=== PATIENT | female | born 1985 | race Caucasian/White ===

== ENCOUNTER 2017-06-12 12:47 | Emergency (ER) | payer OTHER ==
[2017-06-12 12:56] VITALS: BP 116/73
--- NOTE | 2017-06-12 14:58 | ED Physician Documentation ---
PD HPI LOWER EXT INJURY - Stated complaint Stated Complaint: RT LEG PX - Chief complaint Chief Complaint: Ext Problem - History obtained from History obtained from: Patient - History of Present Illness PD HPI LOW EXT INJURY LOCATION: Right, Calf Type of injury: Other (had been on drive from [place] to here prior to the onset.). No: Fall, Twist, Blunt / blow Timing - onset: How many weeks ago (1) Timing - duration: Weeks (1) Timing - details: Gradual onset, Still present, Waxing and waning Worsened by: Moving, Palpating Associated symptoms: No: Weakness, Numbness, Swelling Similar symptoms before: Has not had sx before Recently seen: Not recently seen Review of Systems Constitutional: denies: Fever, Chills Musculoskeletal: reports: Extremity pain. denies: Extremity swelling Neurologic: denies: Generalized weakness, Focal weakness, Numbness PD PAST MEDICAL HISTORY - Past Medical History Past Medical History: Yes Cardiovascular: None Respiratory: None Neuro: None Endocrine/Autoimmune: None Psych: Depression, Anxiety - Past Surgical History Past Surgical History: Yes - Present Medications Home Medications: Ambulatory Orders Medication Instructions Recorded Confirmed Norelgestromin/Ethin.estradiol 1 each TD DAILY 06/12/17 06/12/17 [Xulane Patch] buPROPion [Wellbutrin Xl] 150 mg PO DAILY 06/12/17 06/12/17 - Allergies Allergies/Adverse Reactions: Allergies Allergy/AdvReac Type Severity Reaction Status Date / Time No Known Drug Allergies Allergy Verified 06/12/17 12:56 - Social History Does the pt smoke?: No Smoking Status: Former smoker Does the pt drink ETOH?: No ETOH Use: Beer Does the pt have substance abuse?: No - Immunizations Immunizations are current?: Yes - POLST Patient has POLST: No PD ED PE NORMAL - Vitals Vital signs reviewed: Yes - General General: Alert and oriented X 3, No acute distress, Well developed/nourished - Cardiac Cardiac: RRR, No murmur - Respiratory Respiratory: No respiratory distress, Clear bilaterally - Derm Derm: Normal color, Warm and dry, No rash - Extremities Extremities: No tenderness to palpate, Normal ROM s pain, No edema, Other ( right calf with tenderness focally in medial posterior calf, without mass, redness, rash. Hurts for plantarflexion against resistance. ) - Neuro Neuro: Alert and oriented X 3, No motor deficit, No sensory deficit Results - Vitals Vitals: Oxygen O2 Source Room air - Rads (name of study) duplex Radiology: Prelim report reviewed (no DVT) PD MEDICAL DECISION MAKING - ED course Complexity details: reviewed results (no DVT, presume then just muscle strain), considered differential, d/w patient Departure - Departure Disposition: 01 Home, Self Care Clinical Impression: Right calf pain, Muscle strain Clinical Impression: (Ruled Out): Deep vein thrombosis Condition: Stable Record reviewed to determine appropriate education?: Yes Instructions: ED Strain Muscle Ext Follow-Up: AHMET Shoemaker [Provider Group] Comments: No signs of blood clots. Presume muscle strain at this point. Ibuprofen or naproxen 2-3 times a day for the next several days. Activity as able based on comfort. This presumably will improve slowly over the next several days to a week. Recheck if worsening symptoms or swelling in the foot or ankle, skin rash , fevers, other concerns. Discharge Date/Time: 06/12/17 17:37
--- NOTE | 2017-06-12 17:34 | Ultrasound Preliminary Report ---
Exam: US DUPLEX EXT VEINS RIGHT IMPRESSION: No evidence for deep venous thrombosis. [facility] SITE ID: [id number]
--- NOTE | 2017-06-12 17:37 | Ultrasound Report ---
EXAM: RIGHT LOWER EXTREMITY VENOUS ULTRASOUND EXAM DATE: 06/12/2017 04:08 PM. CLINICAL HISTORY: Pain in right calf without injury. Recent travel. COMPARISON: None. TECHNIQUE: Real-time sonographic vascular imaging was performed by the in store representative through the lower extremity utilizing both color-flow and Doppler spectral analysis. Multiple national sales representative static maxine ges were saved for review. FINDINGS: Common Femoral Vein (CFV): Normal. CFV-GSV Junction: Normal. Profunda Femoral Vein (PFV): Normal. Femoral Vein (FV) Prox: Normal. Femoral Vein (FV) Mid: Normal. Femoral Vein (FV) Dist: Normal. Popliteal Vein: Normal. Posterior Tibial Veins: Normal. Peroneal Veins: Normal. Other: None. IMPRESSION: No evidence for deep venous thrombosis. [facility] Referring Provider Line: [phone] SITE ID: [id number]
== END 2017-06-12 17:37 | disposition home or self-care (01) ==
LOC: ED 12:47
DX: M79.661 Pain in right lower leg (principal); S86.811A Strain of other muscle(s) and tendon(s) at lower leg level, right leg, initial encounter; X58.XXXA Exposure to other specified factors, initial encounter; Z87.891 Personal history of nicotine dependence
CPT/HCPCS: 99282; 99283

== ENCOUNTER 2019-01-28 16:26 | Outpatient (CLI) | payer OTHER ==
--- NOTE | 2019-01-30 12:11 | MRI Report ---
Reason: PAIN IN RIGHT WRIST Procedure Date: 01/28/2019 Accession Number: [id number] / [id number] Procedure: MRI - Wrist RT W/O CPT Code: FULL RESULT: EXAM: RIGHT WRIST MRI WITHOUT CONTRAST EXAM DATE: 01/28/2019 05:20 PM. CLINICAL HISTORY: Right wrist pain. COMPARISON: None. TECHNIQUE: Multiplanar, multisequence T1-weighted and fluid-sensitive sequences of the wrist without contrast. Other: None. FINDINGS: Bones: No fractures or subluxations. No marrow edema. No bone lesions. Cartilage: The articular cartilage is unremarkable. There is a small 1 mm tear at the radial aspect of the triangular fibrocartilage articular disk. Ligaments: The scapholunate and lunotriquetral ligaments are intact. The visualized other intrinsic, extrinsic and collateral ligaments are unremarkable. Tendons: The extensor compartment I through and flexor tendons are unremarkable. Musculature: No edema or fatty atrophy. Other: The contents of the carpal tunnel, including the median nerve, are unremarkable. Guyons canal is unremarkable. There is a small 3 x 3 x 2 mm synovial cyst arising from the volar aspect of the radiocarpal joint. Small distal radial ulnar joint effusion. The subcutaneous tissues are unremarkable. IMPRESSION: 1. Small 1 mm tear at the radial aspect of the triangular fibrocartilage articular disk. 2. Small 3 x 3 x 2 mm synovial cyst arising from the volar aspect of the radiocarpal joint. 3. Small distal radial ulnar joint effusion. [facility]
== END 2019-01-28 16:27 | disposition home or self-care (01) ==
LOC: DI 16:26
PROVIDERS: ATTEND Family Medicine
DX: S63.521A Sprain of radiocarpal joint of right wrist, initial encounter (principal); M71.331 Other bursal cyst, right wrist; M25.431 Effusion, right wrist

== ENCOUNTER 2019-02-24 07:40 | Outpatient (CLI) | payer OTHER ==
[2019-02-24] MEDS ORDERED: GADOBUTROL 7.5 MMOL/7.5 ML VIAL ONE (08:57)
[2019-02-24] MEDS ORDERED: GADOBUTROL 7.5 MMOL/7.5 ML VIAL IV ONE (09:17)
--- NOTE | 2019-02-24 10:26 | MRI Report ---
Reason: TINNITUS, BILATERAL,DIZZINESS AND GIDDINESS Procedure Date: 02/24/2019 Accession Number: [id number] / [id number] Procedure: MRI - IACS W/WO CPT Code: FULL RESULT: EXAM: MRI BRAIN AND INTERNAL AUDITORY CANAL (IAC),WITHOUT AND WITH CONTRAST. EXAM DATE: 02/24/2019 09:14 AM. CLINICAL HISTORY: TINNITUS, BILATERAL,DIZZINESS AND GIDDINESS. COMPARISON: None. TECHNIQUE: Multiplanar, multisequence T1-weighted and fluid-sensitive MRI sequences of the brain and IACs were performed. Other: None. IV Contrast: 6.5 mL Gadavist. FINDINGS: Brain Volume: Normal for age. Parenchyma/Dura: No restricted diffusion to suggest acute or recent ischemic infarct. No susceptibility artifact to suggest an acute or recent parenchymal hemorrhage. No mass effect, midline shift or abnormal subdural fluid collection. In the left inferior anterior martha there is a small nonspecific focus of T1 hypointensity that measures 4 mm wide on axial T1-weighted image 39 of series 302. This appears to be associated with a punctate focus of central enhancement, reference images 11 of series 1001, image 40 of series 1102, image 74 series 1101 and image 66 of series 1103. No evidence for associated restricted diffusion or edema/T2 hyperintensity. No focal supratentorial white matter T2 hyperintense lesions. Low-lying cerebellar tonsils extending up to 5 mm below the level of the foramen magnum. Incidental dilated perivascular space in the left basal ganglia. Internal Auditory Canals (IACs): Normal. No cranial nerve lesion or inflammatory process identified. The inner ear structure are symmetric and unremarkable. Ventricles/Cisterns: No hydrocephalus. No abnormal extra-axial fluid collection or hemorrhage. Orbits: Symmetric and unremarkable. Sella Turcica: The pituitary gland enhances normally but appears to be somewhat flattened along the inferior aspect of the pituitary fossa in a configuration suggestive of a partially empty sella that is a relatively common anatomic variant that is usually an incidental finding. Vasculature: Normal signal flow void is seen in the major arterial structures at the skull base. The dural sinuses are patent and enhance normally. Sinuses: No acute sinus disease. Bones: No focal pathologic appearing marrow signal changes. Other: None. IMPRESSION: 1. Subtle nonspecific focus of T1 hypointensity with minimal enhancement in the anterior inferior left martha. This is too small to further characterize accurately. Differential includes incidental capillary telangiectasia. Apparent enhancement leaves open the possibility of abnormal blood brain barrier breakdown, which may be associated with multiple conditions including inflammatory, post ischemic and neoplastic conditions. The significance of this finding is uncertain and follow-up in 3-6 months if symptoms persist or worsen is suggested. 2. Normal MRI appearance of the internal auditory canals. No enhancing or space-occupying mass or nodule. 3. 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 4. Probable "partially empty sella." [facility]
== END 2019-02-24 07:41 | disposition home or self-care (01) ==
LOC: DI 07:40
PROVIDERS: ATTEND Otolaryngology Facial Plastic Surgery
DX: H93.13 Tinnitus, bilateral (principal); R42 Dizziness and giddiness
CPT/HCPCS: 70543; A9585